=== PATIENT | female | born 1990 | race African-American/Black ===

== ENCOUNTER 2018-09-07 15:42 | Emergency (ER) | payer OTHER ==
[2018-09-07 16:03] VITALS: BP 146/91; PULSE 85; TEMP 98.9; BMI 30.7
--- NOTE | 2018-09-07 16:06 | PDOC ---
Rapid Medical Evaluation Chief Complaint: Pain Time Seen by Provider: 09/07/18 16:03 Medical Evaluation: Allergies Allergy/AdvReac Type Severity Reaction Status Date / Time No Known Allergies Allergy Verified 09/07/18 16:03 Vital Signs Temp Pulse Resp BP Pulse Ox 98.9 F 85 18 146/91 100 09/07/18 16:00 09/07/18 16:00 09/07/18 16:00 09/07/18 16:00 09/07/18 16:00 09/07/18 16:05 I have performed a brief in-person evaluation of this patient. The patient presents with a chief complaint of: abd pain, x 2 days= no fever, no meds taken Pertinent physical exam findings: mild tenderness. no guarding I have ordered the following: urine / UCG The patient will proceed to the ED for further evaluation.
[2018-09-07 16:41] LABS: HCG,QUALITATIVE URINE Negative
[2018-09-07] MEDS ORDERED: ACETAMINOPHEN 1000 MG/100 ML VIAL (NON FORMULARY) IVPB ONE (17:23)
[2018-09-07] MEDS ORDERED: ACETAMINOPHEN INJECTION 100 ML IVPB ONE (17:35)
[2018-09-07 17:50] LABS: URINE APPEARANCE SLCLOUDY; URINE BILIRUBIN NEGATIVE (<2.0 mg/dL); URINE COLOR LTYELLOW; URINE GLUCOSE (UA) NEGATIVE (NEGATIVE); URINE KETONE NEGATIVE (NEGATIVE); URINE LEUK ESTERASE NEGATIVE (NEGATIVE); URINE NITRITE NEGATIVE (NEGATIVE); URINE PROTEIN NEGATIVE (NEGATIVE); URINE UROBILINOGEN NEGATIVE mg/dL (0.2-1.0)
[2018-09-07 18:43] LABS: BASO % 0.7 % (0-2.0); EOS % 2.1 % (0-4.5); HEMATOCRIT 40.4 % (32.4-45.2); HEMOGLOBIN 13.4 GM/dL (10.7-15.3); LYMPH % 36.5 % (8-40); MCH 29.1 pg (25.7-33.7); MCHC 33.1 g/dl (32.0-36.0); MEAN PLT VOLUME 9.1 fl (7.5-11.1); NEUT % 50.7 % (42.8-82.8); PLATELET COUNT 271 K/MM3 (134-434); RDW 13.6 % (11.6-15.6); WHITE BLOOD COUNT 6.1 K/mm3 (4.0-10.0)
--- NOTE | 2018-09-07 18:50 | PDOC ---
History of Present Illness - General Chief Complaint: Pain Stated Complaint: ABDOMINAL PAIN Time Seen by Provider: 09/07/18 16:03 History Source: Patient, Family Exam Limitations: Language Barrier (creole; understands and speaks some ukrainian ; aunt here translating) - History of Present Illness Initial Comments: 09/07/18 18:50 This is a 27 year old [place],Creole speaking female with a history of fibroids , , who presents with throat pain/swelling/dysphagia, headache, pelvic pain and reported fever at home. Patient denies cough, sputum production, n,v,d. She does had increased urinary frequency but denies dysura, hematuria. Denies recent travel, had flu shot in July. Headache, pelvic pain and throat pain all presented at the same time, three days ago. No sick contacts. 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 PMHx: fibroids?unclear history as per aunt; PSHx fibroid removed vs partial fallopian tube removed? Social : denies tobacco, alcohol, drugs, has sex with , uses condoms NKDA Past History - Past Medical History Allergies/Adverse Reactions: Allergies Allergy/AdvReac Type Severity Reaction Status Date / Time No Known Allergies Allergy Verified 09/07/18 16:03 Home Medications: Ambulatory Orders NK [No Known Home Medication] 09/07/18 COPD: No - Suicide/Smoking/Psychosocial Hx Smoking History: Never smoked Review of Systems - Review of Systems Able to Perform ROS?: Yes Is the patient limited Maori proficient: Yes Constitutional: Yes: Fever (felt fever at home; did not take temp), Weakness. No: Chills, Night Sweats HEENTM: Yes: Throat Pain, Throat Swelling. No: Eye Pain, Blurred Vision, Tearing Respiratory: No: Cough, Shortness of Breath, Wheezing, Productive cough Cardiac (ROS): No: Chest Pain, Edema, Irregular Heart Rate, Palpitations ABD/GI: Yes: Abdominal cramping, Other (abdominal /pelvic pain). No: Diarrhea, Nausea, Vomiting, Indigestion : Yes: Discharge (white; non foul smelling), Frequency. No: Burning, Dysuria , Flank Pain, Hematuria Musculoskeletal: No: Back Pain Integumentary: No: Bruising, Change in Color Neurological: No: Headache, Numbness, Paresthesia, Weakness, Unsteady Gait *Physical Exam - Vital Signs Last Vital Signs Temp Pulse Resp BP Pulse Ox 98.9 F 85 18 146/91 100 09/07/18 16:00 09/07/18 16:00 09/07/18 16:00 09/07/18 16:00 09/07/18 16:00 - Physical Exam General Appearance: Yes: Appropriately Dressed HEENT: positive: EOMI, Other (pain with palpation of maxially sinus). negative : Pharyngeal Erythema, Tonsillar Exudate, Tonsillar Erythema, Nasal Congestion Respiratory/Chest: positive: Lungs Clear, Normal Breath Sounds. negative: Crackles, Wheezing Cardiovascular: positive: Regular Rhythm, Regular Rate, S1, S2. negative: Murmur Gastrointestinal/Abdominal: positive: Tender, Other (bilateral low pelvic pain) Lymphatic: negative: Adenopathy Extremity: positive: Normal Inspection, Normal Range of Motion Neurologic: positive: Fully Oriented, Alert ED Treatment Course - LABORATORY CBC & Chemistry Diagram: 09/07/18 18:30 09/07/18 18:30 - ADDITIONAL ORDERS Additional order review: Laboratory Results 09/07/18 16:14 Urine Color Ltyellow Urine Appearance Slcloudy Urine pH 6.0 Ur Specific [place] 1.016 Urine Protein Negative Urine Glucose (UA) Negative Urine Ketones Negative Urine Blood Negative Urine Nitrite Negative Urine Bilirubin Negative Urine Urobilinogen Negative Ur Leukocyte Esterase Negative Urine HCG, Qual Negative - RADIOLOGY Radiology Studies Ordered: Category Date Time Status PELVIC / BLADDER US [US] Stat Ultrasound 09/07/18 18:00 Ordered TRANSVAGINAL ULTRASOUND US [US] Stat Ultrasound 09/07/18 17:59 Ordered - Medications Given in the ED: ED Medications Discontinued Medications Generic Name Dose Route Start Last Admin Trade Name Freq PRN Reason Stop Dose Admin Acetaminophen 1,000 mg 09/07/18 17:23 09/07/18 18:40 Ofirmev Injection - IVPB 09/07/18 17:24 1,000 mg ONCE ONE Administration Medical Decision Making - Medical Decision Making 09/07/18 18:50 This is 27 year old female with a history of fibroids, who presents with multiple complaints. Headache, sore throat, pelvic pain for the past few days. Most likely sinusitis, vs acute viral URI, r/o acute strep. Pelvic pain, r/o ruptures cysts, torsion. -cbc, cmp, ua, uc, bhcg -pelvic exam; very tender adnexal; L?R -get trans vaginal/pelvic 09/07/18 19:05 -labs/us pending -will sign out to night team *DC/Admit/Observation/Transfer Diagnosis at time of Disposition: Pelvic pain - Referrals - Patient Instructions - Post Discharge Activity
[2018-09-07 19:10] LABS: ALBUMIN 4.1 g/dl (3.4-5.0); ALK PHOS 72 U/L (45-117); ANION GAP 7 MMOL/L (8-16); BILIRUBIN,TOTAL 0.5 mg/dL (0.2-1); BLOOD UREA NITROGEN 8 mg/dL (7-18); CHLORIDE 105 mmol/L (98-107); CO2 25 mmol/L (21-32); CREATININE 0.9 mg/dL (0.55-1.3); GLUCOSE,RANDOM 100 mg/dL (74-106); LIPASE 172 U/L (73-393); POTASSIUM 4.4 mmol/L (3.5-5.1); SGOT/AST 21 U/L (15-37); SGPT/ALT 26 U/L (13-61); SODIUM 138 mmol/L (136-145); TOT PROT 8.2 g/dl (6.4-8.2)
[2018-09-07] MEDS ORDERED: KETOROLAC TROMETHAMINE 30 MG/1 ML VIAL IVPUSH ONE (19:29)
[2018-09-07] MEDS ORDERED: KETOROLAC TROMETHAMINE 30 MG/1 ML VIAL ONE (19:38)
--- NOTE | 2018-09-07 19:41 | PDOC ---
*Physical Exam - Vital Signs Last Vital Signs Temp Pulse Resp BP Pulse Ox 98.9 F 85 18 146/91 100 09/07/18 16:00 09/07/18 16:00 09/07/18 16:00 09/07/18 16:00 09/07/18 16:00 ED Treatment Course - LABORATORY CBC & Chemistry Diagram: 09/07/18 18:30 09/07/18 18:30 - ADDITIONAL ORDERS Additional order review: Laboratory Results 09/07/18 09/07/18 18:30 16:14 Sodium 138 Potassium 4.4 Chloride 105 Carbon Dioxide 25 Anion Gap 7 L BUN 8 Creatinine 0.9 Creat Clearance w eGFR > 60 Random Glucose 100 Calcium 9.0 Total Bilirubin 0.5 AST 21 ALT 26 Alkaline Phosphatase 72 Total Protein 8.2 Albumin 4.1 Lipase 172 Urine Color Ltyellow Urine Appearance Slcloudy Urine pH 6.0 Ur Specific [place] 1.016 Urine Protein Negative Urine Glucose (UA) Negative Urine Ketones Negative Urine Blood Negative Urine Nitrite Negative Urine Bilirubin Negative Urine Urobilinogen Negative Ur Leukocyte Esterase Negative Urine HCG, Qual Negative 09/07/18 18:30 Group A Strep Rapid Antigen - Final Throat 09/07/18 18:30 RBC 4.60 MCV 88.0 MCHC 33.1 RDW 13.6 MPV 9.1 Neutrophils % 50.7 Lymphocytes % 36.5 Monocytes % 10.0 Eosinophils % 2.1 Basophils % 0.7 - Medications Given in the ED: ED Medications Discontinued Medications Generic Name Dose Route Start Last Admin Trade Name Samantha PRN Reason Stop Dose Admin Acetaminophen 1,000 mg 09/07/18 17:23 09/07/18 18:40 Ofirmev Injection - IVPB 09/07/18 17:24 1,000 mg ONCE ONE Administration *DC/Admit/Observation/Transfer Diagnosis at time of Disposition: Pelvic pain, Hemorrhagic ovarian cyst - Discharge Dispostion Disposition: HOME Condition at time of disposition: Improved Decision to Admit order: No - Referrals - Patient Instructions Printed Discharge Instructions: Ovarian Cyst Additional Instructions: Follow up with Dr. Pagan, OBGYN within the next 4 days. Come back to the ER for any new, worsening or concerning symptoms. - Post Discharge Activity
--- NOTE | 2018-09-09 22:16 | PDOC ---
Attending Attestation - Resident Resident Name: Hina Montano - ED Attending Attestation I have performed the following: I have examined & evaluated the patient, The case was reviewed & discussed with the resident, I agree w/resident's findings & plan, Exceptions are as noted - HPI HPI: 09/07/18 22:12 27 yo F no pmhx here with c/o sore throat , myalgia, cough and additionally lower abd pain. crampy lower abd pain bilateral, no radiation. cough nonproductive. does have a sore throat. no recent travel or sick contacts. no urinary complaints. did have subjective fevers at home . no n;v no change to stools. - Physicial Exam PE: 09/07/18 22:13 awake alert lungs clear bilaterally heart rrr no mrg ab soft mild suprapubic ttp , no rebound no guarding. no cva tendereness. skin warm and dry. nuero alert oriented x 3 - Medical Decision Making 09/07/18 22:14 pt with mild suprapubic ttp on exam. differential oavarian torsion, cyst, uti pyelo. story inconsistent with appendicitis. plan tvus, labs ua ucg reassess. pt also with sxs suggestive of viral uri. tvus with rupturued ovarian cyst. ua negative.
== END 2018-09-07 19:59 | disposition home or self-care (01) ==
LOC: JER 15:42
PROC: 3E033NZ Introduction of Analgesics, Hypnotics, Sedatives into Peripheral Vein, Percutaneous Approach (ICD-10-PCS; principal; 2018-09-07)
DX: N83.201 Unspecified ovarian cyst, right side (principal)
CPT/HCPCS: 36415; 76830-TC; 76856-TC; 80053; 81003; 83690; 84703; 85025; 87070; 87430; 99282-25; J0131

== ENCOUNTER 2023-03-22 11:58 | Emergency (ER) | payer SELFPAY ==
[2023-03-22 12:04] VITALS: BP 132/89; PULSE 86; RESP 18; TEMP 98.1; BMI 31.9
[2023-03-22] MEDS ORDERED: ACETAMINOPHEN 500 MG TABLET (FP) PO ONE (12:36)
[2023-03-22] MEDS ORDERED: ACETAMINOPHEN 500 MG TABLET (FP) ONE (12:42)
[2023-03-22] MEDS ORDERED: DIPHTH,PERTUSS(ACELL),TET 0.5 ML DISP.SYRIN IM ONE ×2 (13:34→13:41)
[2023-03-22] MEDS ORDERED: BACITRACIN ZINC 15 GM TUBE TOPICAL OINTMENT ONE (14:08)
== END 2023-03-22 14:29 | disposition home or self-care (01) ==
LOC: JERFT 11:58 → JER 11:58 → JERFT 14:29
PROC: 3E0234Z Introduction of Serum, Toxoid and Vaccine into Muscle, Percutaneous Approach (ICD-10-PCS; principal; 2023-03-22)
DX: S93.431A Sprain of tibiofibular ligament of right ankle, initial encounter (principal); S80.02XA Contusion of left knee, initial encounter; M25.571 Pain in right ankle and joints of right foot; M25.562 Pain in left knee; W01.0XXA Fall on same level from slipping, tripping and stumbling without subsequent striking against object, initial encounter
CPT/HCPCS: 73564-TC-LT-FY; 73610-TC-RT-FY; 84703; 90715; 99284-25

== ENCOUNTER 2024-03-02 10:42 | Emergency (ER) | payer OTHER ==
[2024-03-02 10:56] VITALS: BP 126/72; PULSE 81; RESP 18; TEMP 98.3; BMI 33.3
[2024-03-02] MEDS ORDERED: KETOROLAC TROMETHAMINE 30 MG/1 ML VIAL IM ONE (11:36)
[2024-03-02] MEDS ORDERED: ACETAMINOPHEN 500 MG TABLET (FP) ONE (11:51)
[2024-03-02] MEDS: ACETAMINOPHEN 500 MG TABLET (FP) PO ONE (11:52)
[2024-03-02] MEDS ORDERED: KETOROLAC TROMETHAMINE 30 MG/1 ML VIAL ONE (12:34)
[2024-03-02 13:20] LABS: HIV INTERPRETATION NEGATIVE (NEGATIVE)
== END 2024-03-02 12:39 | disposition home or self-care (01) ==
LOC: JERFT 10:42
DX: R50.9 Fever, unspecified (principal); J02.9 Acute pharyngitis, unspecified
CPT/HCPCS: 36415; 84703; 87389; 87651; 99283-25